=== PATIENT | female | born 2000 | race African-American/Black ===

== ENCOUNTER 2020-11-23 09:57 | Inpatient (IN) | payer MEDICAID ==
[~2020-11-23] VITALS: Ht 162.6 cm; Wt 56.7 kg
[2020-11-23] MEDS ORDERED: OXYTOCIN 30 UNIT/500 ML PREMIX 500 ML IV PRN ×3 (10:30→11:00)
[2020-11-23] MEDS ORDERED: 0.9 % SODIUM CHLORIDE 10 ML DISP.SYRIN. IV PRN ×2 (10:30→11:00)
[2020-11-23] MEDS ORDERED: fentaNYL PF VIAL 100 MCG/2 ML VIAL IVP PRN (10:30)
[2020-11-23] MEDS ORDERED: LIDOCAINE 1% PF 30 ML VIAL. INJ PRN (10:30)
[2020-11-23] MEDS ORDERED: IBUPROFEN 400 MG TABLET. PO PRN (10:30)
[2020-11-23] MEDS ORDERED: IV RINGERS,LACTATED 1000ML 1,000 ML IV PRN (10:30)
--- NOTE | 2020-11-23 10:58 | PDOC1 ---
OB - History Hx of Present Care: Good Care Ultrasounds: Normal mid trimester US Obstetrical Complications: None Medical Complications: None Past Family/Social History * Past Medical, Surgical, Family and Obstetric Histories reviewed from chart. Rubella: Immune RPR/VDRL: Negative GBS Status: Positive HBsAG: Negative OB - Chief Complaint & HPI Date of Admission: Date of Admission: Nov 23, 2020 at 09:57 Chief Complaint/History : 2 Para: 1 EGA: 38 Reason for admission: active labor Admission Nurse Assessment Rev: Yes OB - Admission Exam Physical Exam Vitals: VS - Last 72 Hours, by Label Date Time Temp Pulse Resp B/P (MAP) Pulse Ox O2 Delivery O2 Flow Rate FiO2 11/23/20 10:34 22 Room Air HEENT: Normal Heart: Regular Rate Lungs: Clear Abdomen: Gravid, Non tender, Soft Extremities: Edema Reflexes: Normal Cervical Dilatation: 7cm Effacement: 75% Station: 0 Membranes: Intact Heart Rate: Normal Accelerations: Accelerations Present Decelerations: No decelerations Contractions on Admission: < 5 Minutes Apart Intensity: Firm Text A: 38 wks IUP GBS positive Active labor P: Admit labor management. Start Pen G prophylaxis. SUNITHA GAYTAN Jr, MD Nov 23, 2020 10:57
--- NOTE | 2020-11-23 10:59 | PDOC ---
VAGINAL DELIVERY DATE DATE: 11/23/20 TIME: 10:58 : 2 Para: 2 EGA: 38 VAGINAL DELIVERY: VTX VACCUM ASSISTED: No PLACENTA: Spontaneous 8/9 SEX: Female WEIGHT Weight [ pending ] Nuchal Cord: No Amniotic Fluid: Clear PAIN: Natural EPISIOTOMY: No EXTENSION: No EBL 300 ml COMPLICATIONS none CONDITION pt. stable Signs of Intrauterine Infectio: None Shoulder Dystocia: No SUNITHA GAYTAN Jr, MD Nov 23, 2020 10:59
[2020-11-23] MEDS ORDERED: DOCUSATE SODIUM 100 MG CAPSULE. PO PRN (11:00)
[2020-11-23] MEDS ORDERED: diphenhydrAMINE HCL 25 MG CAPSULE PO PRN (11:00)
[2020-11-23] MEDS ORDERED: PENICILLIN G K 5,000,000 UNIT in IV DEXTROSE 5% 100ML 100 ML IV ONE (11:00)
[2020-11-23] MEDS ORDERED: MAG HYDROX/ALUMINUM HYD/SIMETH 30 ML ORAL.SUSP PO PRN (11:00)
[2020-11-23] MEDS ORDERED: ACETAMINOPHEN 325 MG TABLET. PO PRN (11:00)
[2020-11-23] MEDS ORDERED: BENZOCAINE 20% TOPICAL AEROSOL SPRAY 57GM CAN. TP PRN (11:00)
[2020-11-23] MEDS ORDERED: HYDROCORTISONE 1% TOPICAL OINTMENT 30GM TUBE. TP PRN (11:00)
[2020-11-23] MEDS ORDERED: PHENYLEPH/MINERAL OIL/PETROLAT RECTAL OINTMENT TUBE. RC PRN (11:00)
[2020-11-23] MEDS ORDERED: MAGNESIUM HYDROXIDE 2,400 MG/30 ML ORAL.SUSP. PO PRN (11:00)
[2020-11-23] MEDS ORDERED: oxyCODONE/APAP 5/325 1 TAB TABLET PO PRN (11:00)
[2020-11-23] MEDS ORDERED: TDaP (Adacel) per PROTOCOL. MC PRN (11:00)
[2020-11-23] MEDS ORDERED: MMR per PROTOCOL. MC PRN (11:00)
[2020-11-23] MEDS ORDERED: ZOLPIDEM 5 MG TABLET. PO PRN (11:00)
[2020-11-23] MEDS ORDERED: SIMETHICONE 80 MG TAB.CHEW PO PRN (11:00)
[2020-11-23 12:29] LABS: BASO % 0 % (0-3); EOS % 0 % (0-3); HEMATOCRIT 35.3 % (36.0-47.0); HEMOGLOBIN 11.7 g/dL (12.0-15.5); LYMPH # 0.6 x10^3/uL (1.0-4.8); LYMPH % 5 % (24-48); MEAN CORPUSCULAR HEMOGLOBIN 30 pg (25-35); MEAN CORPUSCULAR HGB CONC 33 g/dL (31-37); MEAN CORPUSCULAR VOLUME 90 fL (79-100); MONO # 0.7 x10^3/uL (0.0-1.1); MONO % 5 % (0-9); NEUT # 11.9 x10^3/uL (1.8-7.7); NEUT % 90 % (31-73); PLATELET COUNT 177 x10^3/uL (140-400); RED BLOOD COUNT 3.94 x10^6/uL (3.50-5.40); RED CELL DISTRIBUTION WIDTH 12.7 % (11.5-14.5); WHITE BLOOD COUNT 13.2 x10^3/uL (4.0-11.0)
[2020-11-23 13:08] LABS: % BANDS 3 % (0-9); % BASOS 1 % (0-3); % LYMPHS 9 % (24-48); % MONOS 5 % (0-10); % SEGS 82 % (35-66)
[2020-11-23 13:09] LABS: PLT ESTIMATE ADEQUATE (ADEQUATE)
[2020-11-23] MEDS ORDERED: PENICILLIN G K 2,500,000 UNIT in IV DEXTROSE 5% 50 ML IV SCH (15:00)
[2020-11-23 20:11] VITALS: BP 111/58
--- NOTE | 2020-11-23 20:51 | NUR ---
Assessment of this patient complete. Not sure if patient may be cognitively inpaired, when asked a question she either doesn't answer or gives a vague nod or shake of head. Asked patient if she was able to read, write, etc. per teaching assessment. Had a hard time getting an answer to that question. She also speaks very softly, so it is hard to evaluate needs.
[2020-11-23] MEDS: IBUPROFEN 400 MG TABLET. PO PRN (23:47)
[2020-11-23 23:51] VITALS: BP 98/61
[2020-11-24 06:32] VITALS: BP 90/49
[2020-11-24 06:51] LABS: BASO # 0.1 x10^3/uL (0.0-0.2); BASO % 1 % (0-3); EOS % 0 % (0-3); HEMATOCRIT 35.4 % (36.0-47.0); LYMPH # 2.3 x10^3/uL (1.0-4.8); LYMPH % 22 % (24-48); MEAN CORPUSCULAR HEMOGLOBIN 30 pg (25-35); MEAN CORPUSCULAR HGB CONC 34 g/dL (31-37); MEAN CORPUSCULAR VOLUME 89 fL (79-100); MONO % 10 % (0-9); NEUT # 7.2 x10^3/uL (1.8-7.7); NEUT % 68 % (31-73); PLATELET COUNT 214 x10^3/uL (140-400); RED BLOOD COUNT 3.96 x10^6/uL (3.50-5.40); RED CELL DISTRIBUTION WIDTH 12.9 % (11.5-14.5); WHITE BLOOD COUNT 10.6 x10^3/uL (4.0-11.0)
[2020-11-24] MEDS ORDERED: FERROUS SULFATE 325 MG TABLET. PO SCH (08:00)
--- NOTE | 2020-11-24 08:41 | PDOC ---
OB Progress Note Date of Service 11/24/20 Time of Evaluation 0840 Notes Pt. feeling well. Pain controlled. No complaints. Lab Laboratory Tests Test 11/23/20 12:15 11/23/20 19:30 11/24/20 06:40 White Blood Count 13.2 x10^3/uL (4.0-11.0) 10.6 x10^3/uL (4.0-11.0) Red Blood Count 3.94 x10^6/uL (3.50-5.40) 3.96 x10^6/uL (3.50-5.40) Hemoglobin 11.7 g/dL (12.0-15.5) 12.0 g/dL (12.0-15.5) Hematocrit 35.3 % (36.0-47.0) 35.4 % (36.0-47.0) Mean Corpuscular Volume 90 fL (79-100) 89 fL (79-100) Mean Corpuscular Hemoglobin 30 pg (25-35) 30 pg (25-35) Mean Corpuscular Hemoglobin Concent 33 g/dL (31-37) 34 g/dL (31-37) Red Cell Distribution Width 12.7 % (11.5-14.5) 12.9 % (11.5-14.5) Platelet Count 177 x10^3/uL (140-400) 214 x10^3/uL (140-400) Neutrophils (%) (Auto) 90 % (31-73) 68 % (31-73) Lymphocytes (%) (Auto) 5 % (24-48) 22 % (24-48) Monocytes (%) (Auto) 5 % (0-9) 10 % (0-9) Eosinophils (%) (Auto) 0 % (0-3) 0 % (0-3) Basophils (%) (Auto) 0 % (0-3) 1 % (0-3) Neutrophils # (Auto) 11.9 x10^3/uL (1.8-7.7) 7.2 x10^3/uL (1.8-7.7) Lymphocytes # (Auto) 0.6 x10^3/uL (1.0-4.8) 2.3 x10^3/uL (1.0-4.8) Monocytes # (Auto) 0.7 x10^3/uL (0.0-1.1) 1.0 x10^3/uL (0.0-1.1) Eosinophils # (Auto) 0.0 x10^3/uL (0.0-0.7) 0.0 x10^3/uL (0.0-0.7) Basophils # (Auto) 0.0 x10^3/uL (0.0-0.2) 0.1 x10^3/uL (0.0-0.2) Segmented Neutrophils % 82 % (35-66) Band Neutrophils % 3 % (0-9) Lymphocytes % 9 % (24-48) Monocytes % 5 % (0-10) Basophils % 1 % (0-3) Platelet Estimate Adequate (ADEQUATE) SARS-CoV-2 Antigen (Rapid) Negative (NEGATIVE) Laboratory Tests Test 11/23/20 12:15 11/23/20 19:30 11/24/20 06:40 White Blood Count 13.2 x10^3/uL (4.0-11.0) 10.6 x10^3/uL (4.0-11.0) Red Blood Count 3.94 x10^6/uL (3.50-5.40) 3.96 x10^6/uL (3.50-5.40) Hemoglobin 11.7 g/dL (12.0-15.5) 12.0 g/dL (12.0-15.5) Hematocrit 35.3 % (36.0-47.0) 35.4 % (36.0-47.0) Mean Corpuscular Volume 90 fL (79-100) 89 fL (79-100) Mean Corpuscular Hemoglobin 30 pg (25-35) 30 pg (25-35) Mean Corpuscular Hemoglobin Concent 33 g/dL (31-37) 34 g/dL (31-37) Red Cell Distribution Width 12.7 % (11.5-14.5) 12.9 % (11.5-14.5) Platelet Count 177 x10^3/uL (140-400) 214 x10^3/uL (140-400) Neutrophils (%) (Auto) 90 % (31-73) 68 % (31-73) Lymphocytes (%) (Auto) 5 % (24-48) 22 % (24-48) Monocytes (%) (Auto) 5 % (0-9) 10 % (0-9) Eosinophils (%) (Auto) 0 % (0-3) 0 % (0-3) Basophils (%) (Auto) 0 % (0-3) 1 % (0-3) Neutrophils # (Auto) 11.9 x10^3/uL (1.8-7.7) 7.2 x10^3/uL (1.8-7.7) Lymphocytes # (Auto) 0.6 x10^3/uL (1.0-4.8) 2.3 x10^3/uL (1.0-4.8) Monocytes # (Auto) 0.7 x10^3/uL (0.0-1.1) 1.0 x10^3/uL (0.0-1.1) Eosinophils # (Auto) 0.0 x10^3/uL (0.0-0.7) 0.0 x10^3/uL (0.0-0.7) Basophils # (Auto) 0.0 x10^3/uL (0.0-0.2) 0.1 x10^3/uL (0.0-0.2) Segmented Neutrophils % 82 % (35-66) Band Neutrophils % 3 % (0-9) Lymphocytes % 9 % (24-48) Monocytes % 5 % (0-10) Basophils % 1 % (0-3) Platelet Estimate Adequate (ADEQUATE) SARS-CoV-2 Antigen (Rapid) Negative (NEGATIVE) Medications Current Medications Sodium Chloride (Normal Saline Flush) 3 ml QSHIFT PRN IV AFTER MEDS AND BLOOD DRAWS; Start 11/23/20 at 10:30; Stop 11/23/20 at 19:53; Status DC Ringer's Solution 1,000 ml @ 125 mls/hr Q8H PRN IV PER PROTOCOL Last administered on 11/23/20at 10:34; Start 11/23/20 at 10:30; Stop 11/23/20 at 19:54; Status DC Fentanyl Citrate (Fentanyl 2ml Vial) 100 mcg PRN Q1HR PRN IVP Severe pain Last administered on 11/23/20at 10:34; Start 11/23/20 at 10:30; Stop 11/23/20 at 19:54; Status DC Lidocaine HCl (Xylocaine 1% Pf 30ml Vial) 30 ml 1X PRN PRN INJ SEE COMMENTS; Start 11/23/20 at 10:30; Stop 11/23/20 at 19:54; Status DC Oxytocin 500 ml @ 0 mls/hr CONT PRN IV SEE I/O RECORD; Start 11/23/20 at 10:30; Stop 11/23/20 at 19:53; Status DC Oxytocin 500 ml @ 0 mls/hr CONT PRN PRN IV Post delivery bleeding Last administered on 11/23/20at 12:38; Start 11/23/20 at 10:30 Ibuprofen (Motrin) 800 mg PRN Q6HRS PRN PO INFLAMMATION; Start 11/23/20 at 10:30; Stop 11/23/20 at 19:53; Status DC Penicillin G Potassium [id number] unit/Dextrose 100 ml @ 100 mls/hr 1X ONCE IV Last administered on 11/23/20at 10:38; Start 11/23/20 at 11:00; Stop 11/23/20 at 19:53; Status DC Penicillin G Potassium [id number] unit/Dextrose 50 ml @ 100 mls/hr Q4H IV ; Start 11/23/20 at 15:00; Stop 11/23/20 at 19:53; Status DC Sodium Chloride (Normal Saline Flush) 10 ml QSHIFT PRN IV AFTER MEDS AND BLOOD DRAWS; Start 11/23/20 at 11:00 Oxytocin 500 ml @ 62.5 mls/hr CONT PRN IV SEE I/O RECORD; Start 11/23/20 at 11:00; Stop 11/23/20 at 18:59; Status DC Acetaminophen (Tylenol) 650 mg PRN Q6HRS PRN PO MILD PAIN / TEMP > 100.3'F; Start 11/23/20 at 11:00 Ibuprofen (Motrin) 800 mg PRN Q8HRS PRN PO INFLAMMATION/PAIN PREVENTION Last administered on 11/23/20at 23:47; Start 11/23/20 at 11:00 Docusate Sodium (Colace) 100 mg PRN BID PRN PO CONSTIPATION; Start 11/23/20 at 11:00 Magnesium Hydroxide (Milk Of Magnesia) 2,400 mg PRN DAILY PRN PO CONSTIPATION; Start 11/23/20 at 11:00 Al Hydroxide/Mg Hydroxide (Mylanta Plus Xs) 30 ml PRN Q4HRS PRN PO HEARTBURN / GAS; Start 11/23/20 at 11:00 Simethicone (Gas-X) 80 mg PRN AFTMEALHC PRN PO GAS / BLOATING Last administered on 11/23/20at 12:37; Start 11/23/20 at 11:00 Diphenhydramine HCl (Benadryl) 25 mg PRN Q6HRS PRN PO ITCHING; Start 11/23/20 at 11:00 Benzocaine (Americaine) 1 spray PRN QID PRN TP TOPICAL PAIN Last administered on 11/23/20at 23:47; Start 11/23/20 at 11:00 Phenyleph/Shark Oil/Min Oil/Petrol (Preparation H) 1 isaura PRN QID PRN RC RECTAL PAIN; Start 11/23/20 at 11:00 Hydrocortisone (Cortaid) 1 isaura PRN QID PRN TP PERINEAL PAIN; Start 11/23/20 at 11:00 Ferrous Sulfate (Feosol) 325 mg BIDWMEALS PO ; Start 11/24/20 at 08:00 Zolpidem Tartrate (Ambien) 5 mg PRN QHS PRN PO INSOMNIA, MAY REPEAT X1; Start 11/23/20 at 11:00 Info (Do NOT chart on this placeholder) 1 ea 1X PRN PRN MC SEE COMMENTS; Start 11/23/20 at 11:00 Info (Do NOT chart on this placeholder) 1 ea 1X PRN PRN MC SEE COMMENTS; Start 11/23/20 at 11:00 Oxycodone/ Acetaminophen (Percocet 5/325) 2 tab PRN Q4HRS PRN PO MODERATE PAIN, SEVERE PAIN; Start 11/23/20 at 11:00 Multivitamins (Thera M Plus) 1 tab DAILY PO ; Start 11/24/20 at 09:00 Exam Abd: soft, non tender, fundus firm Assessment PPD#1 s/p Plan of Care: Continue current Tx, Mgmt SUNITHA GAYTAN Jr, MD Nov 24, 2020 08:41
[2020-11-24] MEDS ORDERED: MULTIVITAMIN with MINERAL TABLET. PO SCH (09:00)
[2020-11-24] MEDS: IBUPROFEN 400 MG TABLET. PO PRN (11:19)
[2020-11-24 11:21] VITALS: BP 95/58
[2020-11-24 18:51] VITALS: BP 104/56
[2020-11-24 21:50] VITALS: BP 111/58
[2020-11-24] MEDS ORDERED: DIPH,PERTUSS(ACELL),TET VAC/PF 0.5 ML SYRINGE. VAX IM ONE (22:00)
[2020-11-25 05:59] VITALS: BP 108/57
--- NOTE | 2020-11-25 09:05 | PDOC3 ---
OB DISCHARGE SUMMARY DATE OF ADMISSION: 11/23/20 DATE OF DISCHARGE: 11/25/20 REASON FOR ADMISSION: Onset of labor INTRAPARTUM PROCEDURES: Spontanous Vag Deliv DISCHARGE DIAGNOSIS: Term Delivered DISCHARGE INFORMATION: Activity (ad irma), Diet (regular), Instructions (pelvic rest x 6 wks) HOSPITAL COURSE Term gestation delivered vaginally without complications. SUNITHA GAYTAN Jr, MD Nov 25, 2020 09:05
--- NOTE | 2020-11-25 09:07 | DISCH ---
DISCHARGE INSTRUCTIONS Condition on Discharge Condition on Discharge: Stable Activity After Discharge Activity Instructions for Disc: Activity as tolerated Lifting Instructions after Dis: No heavy lifting Driving Instructions after Dis: Do not drive today Diet after Discharge Diet after Discharge: Regular Contacting the [facility] after DC Call your doctor for: Concerns you may have Follow-Up Follow up with: Dr. Myrick in 6 wks. SUNITHA MYRICK Jr, MD Nov 25, 2020 09:07
[2020-11-25 09:10] VITALS: BP 98/59
[2020-11-25 11:15] VITALS: BP 118/65
== END 2020-11-25 12:15 | disposition home or self-care (01) | DRG 807 ==
LOC: 3 SO LND 09:57 → OBSVTOIN 09:57 → 3 SO LND 20:49
PROVIDERS: ADMIT Obstetrics & Gynecology; ATTEND Obstetrics & Gynecology
PROC: 10E0XZZ Delivery of Products of Conception, External Approach (ICD-10-PCS; principal; 2020-11-23)
DX: O99.824 Streptococcus B carrier state complicating childbirth (principal); Z37.0 Single live birth; Z20.822 Contact with and (suspected) exposure to COVID-19; Z3A.38 38 weeks gestation of pregnancy
CPT/HCPCS: 36415; 85007; 85025; 86850; 86900; 86901; 87426; 90471; 90715; J2540; J2590; J3010; J7060; J7120; U0003; G0378